=== PATIENT | male | born 1975 | race Caucasian/White ===

== ENCOUNTER 2021-12-27 09:40 | Outpatient (CLI) | payer OTHER, SELFPAY ==
[2021-12-27 19:37] LABS: Alanine Aminotransferase 56 U/L (6-50); Albumin Level 4.5 g/dL (3.5-5.1); Alkaline Phosphatase 62 U/L (38-126); Anion Gap 18 mmol/L (8-16); Aspartate Amino Transferase 46 U/L (17-59); Bilirubin,Total 0.5 mg/dL (0.2-1.3); Blood Urea Nitrogen 24 mg/dL (9-20); Calcium 9.1 mg/dL (8.4-10.2); Carbon Dioxide 23 mmol/L (22-30); Chloride 101 mmol/L (98-107); Cholesterol 159 mg/dL (0-200); Estimated Glomerular Filt Rate 55; Glucose 128 mg/dL (65-110); HDL Direct 47 mg/dL; Potassium 4.4 mmol/L (3.4-5.0); Sodium 142 mmol/L (137-145); Triglycerides 152 mg/dL (<150)
[2021-12-27 19:48] LABS: LDL Cholesterol Direct 69 mg/dL
[2021-12-27 19:53] LABS: Basophils Percent Auto 0.3 % (0.2-1.2); Eosinophils Percent Auto 0.5 % (0-4.4); Hematocrit 45.4 % (42.0-52.0); Hemoglobin 14.4 g/dL (14.0-18.0); Immature Granulocyte Absolute 0.02 K/mm3 (0.00-0.031); Immature Granulocyte Percent A 0.3 % (0-0.5); Lymphocytes Absolute Auto 1.49 K/mm3 (0.9-3.2); Lymphocytes Percent Auto 24.1 % (18.3-44.2); Mean Corpuscular HGB Conc 31.7 g/dl (32-36); Mean Corpuscular Hemoglobin 27.9 pg (26-34); Mean Corpuscular Volume 87.8 fl (80-100); Mean Platelet Volume 11.4 fl (7.4-10.4); Monocytes Absolute Auto 0.4 K/mm3 (0.1-0.6); Monocytes Percent Auto 6.9 % (2.6-8.5); Neutrophils Absolute Auto 4.2 K/mm3 (1.3-6.7); Neutrophils Percent Auto 67.9 % (45.5-73.1); Platelet Count Result 214 k/mm3 (150-375); Red Blood Count 5.17 M/mm3 (4.6-6.20); Red Cell Distribution Width 13.7 % (11.5-14.5); White Blood Count 6.2 K/mm3 (4.5-10.0)
== END 2021-12-27 09:41 | disposition home or self-care (01) ==
LOC: ANHGOSHLAB 09:41
PROVIDERS: PCP Internal Medicine; Visit Provider Clinical Nurse Specialist
DX: Z13.228 Encounter for screening for other metabolic disorders (principal); Z13.220 Encounter for screening for lipoid disorders
CPT/HCPCS: 36415; 80053; 80061; 85025

== ENCOUNTER 2022-04-10 08:28 | Outpatient (CLI) | payer OTHER, SELFPAY ==
[2022-04-10 19:05] LABS: Alanine Aminotransferase 47 U/L (6-50); Albumin Level 4.1 g/dL (3.5-5.1); Alkaline Phosphatase 64 U/L (38-126); Anion Gap 6 mmol/L (8-16); Aspartate Amino Transferase 65 U/L (17-59); Bilirubin,Total 0.7 mg/dL (0.2-1.3); Blood Urea Nitrogen 29 mg/dL (9-20); Calcium 8.7 mg/dL (8.4-10.2); Carbon Dioxide 30 mmol/L (22-30); Chloride 103 mmol/L (98-107); Estimated Glomerular Filt Rate > 60; Glucose 95 mg/dL (65-110); Sodium 139 mmol/L (137-145)
[2022-04-10 19:32] LABS: Prostate Specific Antigen 1.5 ng/mL (< OR = 4.0)
[2022-04-10 19:49] LABS: Hemoglobin A1C 5.4 % (<5.7)
[2022-04-14 04:14] LABS: LH 4.5 mIU/mL (1.5-9.3)
[2022-04-21 10:52] LABS: Testosterone Total 460 ng/dL (250-1100)
== END 2022-04-10 08:29 | disposition home or self-care (01) ==
LOC: ANHGOSHLAB 08:30
PROVIDERS: PCP Internal Medicine; Visit Provider Internal Medicine
DX: Z51.81 Encounter for therapeutic drug level monitoring (principal); R94.4 Abnormal results of kidney function studies; E29.1 Testicular hypofunction; Z13.228 Encounter for screening for other metabolic disorders; R73.9 Hyperglycemia, unspecified
CPT/HCPCS: 36415; 80053; 83002; 83036; 84153; 84402; 84403

== ENCOUNTER 2022-05-28 08:21 | Outpatient (CLI) | payer OTHER, SELFPAY ==
[2022-05-28 19:06] LABS: Iron 110 ug/dL (49-181)
[2022-05-28 19:15] LABS: Percent Iron Saturation 28 % (20-50)
[2022-05-28 19:30] LABS: Alanine Aminotransferase 62 U/L (6-50); Albumin Level 4.7 g/dL (3.5-5.1); Alkaline Phosphatase 64 U/L (38-126); Aspartate Amino Transferase 51 U/L (17-59); Bilirubin,Total 0.6 mg/dL (0.2-1.3)
[2022-05-28 20:04] LABS: Hepatitis B Surface Antigen Negative (Negative)
[2022-05-28 20:21] LABS: Hepatitis C Virus Antibody Negative (Negative)
[2022-06-02 10:00] LABS: Gliadin AB, IgG 1.7 U/mL (<15.0); TTG IGA AB <1.0 U/mL (<15.0)
== END 2022-05-28 08:22 | disposition home or self-care (01) ==
LOC: ANHGOSHLAB 08:24
PROVIDERS: PCP Internal Medicine; Visit Provider Nurse Practitioner
DX: K64.9 Unspecified hemorrhoids (principal); R14.0 Abdominal distension (gaseous); R79.89 Other specified abnormal findings of blood chemistry; Z12.11 Encounter for screening for malignant neoplasm of colon; E29.1 Testicular hypofunction
CPT/HCPCS: 36415; 80076; 82728; 83540; 83550; 86255; 86364; 86803; 87340

== ENCOUNTER 2022-12-06 08:46 | Outpatient (CLI) | payer OTHER, SELFPAY ==
[2022-12-06 18:33] LABS: Basophils Percent Auto 0.5 % (0.2-1.2); Eosinophils Absolute Auto 0.1 K/mm3 (0-0.3); Eosinophils Percent Auto 1.5 % (0-4.4); Hematocrit 47.7 % (42.0-52.0); Hemoglobin 15.2 g/dL (14.0-18.0); Immature Granulocyte Absolute 0.02 K/mm3 (0.00-0.031); Immature Granulocyte Percent A 0.3 % (0-0.5); Lymphocytes Absolute Auto 1.39 K/mm3 (0.9-3.2); Lymphocytes Percent Auto 22.6 % (18.3-44.2); Mean Corpuscular HGB Conc 31.9 g/dl (32-36); Mean Corpuscular Hemoglobin 28.1 pg (26-34); Mean Corpuscular Volume 88.3 fl (80-100); Mean Platelet Volume 11.8 fl (7.4-10.4); Monocytes Absolute Auto 0.5 K/mm3 (0.1-0.6); Monocytes Percent Auto 8.6 % (2.6-8.5); Neutrophils Absolute Auto 4.1 K/mm3 (1.3-6.7); Neutrophils Percent Auto 66.5 % (45.5-73.1); Platelet Count Result 189 k/mm3 (150-375); Red Cell Distribution Width 13.4 % (11.5-14.5); White Blood Count 6.1 K/mm3 (4.5-10.0)
[2022-12-06 18:45] LABS: Alanine Aminotransferase 57 U/L (6-50); Albumin Level 4.2 g/dL (3.5-5.1); Alkaline Phosphatase 58 U/L (38-126); Anion Gap 7 mmol/L (8-16); Aspartate Amino Transferase 69 U/L (17-59); Bilirubin,Total 0.8 mg/dL (0.2-1.3); Blood Urea Nitrogen 24 mg/dL (9-20); Calcium 8.7 mg/dL (8.4-10.2); Carbon Dioxide 29 mmol/L (22-30); Chloride 100 mmol/L (98-107); Estimated Glomerular Filt Rate > 60; Glucose 110 mg/dL (65-110); Potassium 4.7 mmol/L (3.4-5.0); Sodium 136 mmol/L (137-145)
[2022-12-06 19:48] LABS: Hemoglobin A1C 5.4 % (<5.7)
[2022-12-11 11:00] LABS: Testosterone Free 173.4 pg/mL (35.0-155.0); Testosterone Total 867 ng/dL (250-1100)
== END 2022-12-06 08:47 | disposition home or self-care (01) ==
LOC: ANHGOSHLAB 08:48
PROVIDERS: Clinical Nurse Specialist; PCP Internal Medicine; Visit Provider Nurse Practitioner
DX: E29.1 Testicular hypofunction (principal); R73.9 Hyperglycemia, unspecified
CPT/HCPCS: 36415; 80053; 83036; 84402; 84403; 85025

== ENCOUNTER → 2022-12-24 07:45 | Outpatient (CLI) | payer OTHER, SELFPAY ==
--- NOTE | ~2022-12-24 | US_ITS ---
US abdomen limited INDICATION: Increased liver function tests PROCEDURE: Realtime right upper abdominal ultrasound. COMPARISON: No prior studies for comparison. FINDINGS: The pancreas is normal without focal mass or pancreatic ductal dilation. Liver echotexture is normal without focal mass or intrahepatic biliary dilatation. There is normal directional flow i n the portal vein. There are gallbladder polyps, largest measuring 4 mm. No gallstones, gallbladder wall thickening or p ericholecystic fluid. Common bile duct measures 4 mm. No sonographic Laura's sign. IMPRESSION: 1: Gallbladder polyps. Reviewed, dictated and finalized at location B. IMPRESSION: 1: Gallbladder polyps.
== END ==
PROVIDERS: PCP Internal Medicine; Visit Provider Nurse Practitioner
DX: R74.8 Abnormal levels of other serum enzymes (principal); K82.4 Cholesterolosis of gallbladder
CPT/HCPCS: 76705

== ENCOUNTER 2022-12-24 07:48 | Outpatient (CLI) | payer OTHER, SELFPAY ==
--- NOTE | ~2022-12-24 | MR_ITS ---
MRI of the right knee Clinical history: Pain Technique: Coronal proton density and proton density-weighted images, sagittal proton-density and T2 fat-sat images, and axial proton-density fat-saturated images were acquired. Findings: Anterior and posterior cruciate ligaments are intact. Lateral collateral ligament complex a nd popliteus tendon are intact. There is possible tearing of the deep meniscal femoral portion of the MCL. There is complex tearing of the posterior horn the medial meniscus, with both vertical and horizontal tear components. No lateral meniscal tear seen. There is extensive marrow edema at the medial femoral condyle region. There is a 1.3 x 0.4 cm grade 4 chondral lesion at the central aspect of the medial femoral condyle. Very early developing osteochon dral lesion may be present. Articular cartilage in the patellofemoral and lateral compartments is wel l preserved. Extensor mechanism is intact. Small joint effusion present. Small probable partially ruptured Pacheco's cyst present. Impression: Complex tearing of the posterior horn the medial meniscus, both vertical and horizontal tear componen ts. Extensive marrow edema of the medial femoral condyle region. This could be reactive due to underlying 1.3 x 0.4 cm grade 4 chondral lesion of the central aspect of the medial femoral condyle. Possible v shereen early developing osteochondral lesion in this location. Bone contusion from direct impaction inju ry would be an alternative consideration, versus other stress response/reactive marrow edema. Questionable partial tearing of the deep meniscofemoral portion of the MCL. Small joint effusion with small, partially ruptured Pacheco's cyst. Reviewed, dictated and finalized at location M. Impression: Complex tearing of the posterior horn the medial meniscus, both vertical and ho rizontal tear components. Extensive marrow edema of the medial femoral condyle region. This could be reac tive due to underlying 1.3 x 0.4 cm grade 4 chondral lesion of the central aspe ct of the medial femoral condyle. Possible very early developing osteochondral lesion in this location. Bone contusion from direct impaction injury would be a n alternative consideration, versus other stress response/reactive marrow edema . Questionable partial tearing of the deep meniscofemoral portion of the MCL. Small joint effusion with small, partially ruptured Pacheco's cyst.
== END 2022-12-24 07:49 ==
LOC: GOSHIMG 07:48
PROVIDERS: PCP Internal Medicine; Visit Provider Family Medicine Sports Medicine
DX: M25.561 Pain in right knee (principal); M23.91 Unspecified internal derangement of right knee
CPT/HCPCS: 73721

== ENCOUNTER 2023-03-22 09:01 | Outpatient (CLI) | payer OTHER, SELFPAY ==
[2023-03-22 12:08] LABS: Hematocrit 49.4 % (42.0-52.0); Mean Corpuscular HGB Conc 32.4 g/dl (32-36); Mean Corpuscular Hemoglobin 27.7 pg (26-34); Mean Corpuscular Volume 85.6 fl (80-100); Mean Platelet Volume 11.6 fl (7.4-10.4); Platelet Count Result 177 k/mm3 (150-375); Red Blood Count 5.77 M/mm3 (4.6-6.20); Red Cell Distribution Width 13.2 % (11.5-14.5); White Blood Count 4.5 K/mm3 (4.5-10.0)
[2023-03-22 12:16] LABS: Prothrombin Time 13.3 Seconds (11.1-14.7)
[2023-03-22 12:17] LABS: Alanine Aminotransferase 57 U/L (6-50); Albumin Level 4.4 g/dL (3.5-5.1); Alkaline Phosphatase 94 U/L (38-126); Anion Gap 8 mmol/L (8-16); Aspartate Amino Transferase 81 U/L (17-59); Bilirubin,Total 1.3 mg/dL (0.2-1.3); Blood Urea Nitrogen 28 mg/dL (9-20); Calcium 8.8 mg/dL (8.4-10.2); Carbon Dioxide 27 mmol/L (22-30); Chloride 103 mmol/L (98-107); Cholesterol 196 mg/dL (0-200); Estimated Glomerular Filt Rate > 60; Glucose 104 mg/dL (65-110); HDL Direct 44 mg/dL; Potassium 4.3 mmol/L (3.4-5.0); Sodium 138 mmol/L (137-145); Triglycerides 262 mg/dL (<150)
[2023-03-22 12:25] LABS: LDL Cholesterol Direct 86 mg/dL
[2023-03-22 12:26] LABS: Iron 150 ug/dL (49-181)
[2023-03-22 12:39] LABS: Percent Iron Saturation 41 % (20-50)
[2023-03-22 13:04] LABS: Hepatitis B Surface Antigen Negative (Negative)
[2023-03-22 13:10] LABS: HAV RESULT Negative (Negative); Hepatitis B Core IgM Result Negative (Negative)
[2023-03-22 13:21] LABS: Hepatitis C Virus Antibody Negative (Negative)
[2023-03-25 20:23] LABS: GGT 24 U/L (3-95)
[2023-03-26 05:27] LABS: LKM 1 Antibody <=20.0 U (<=20.0)
[2023-03-26 09:52] LABS: Actin Antibody (IgG) <20 U (<20)
[2023-03-26 13:59] LABS: Anti Nuclear Antibody Pattern Nuclear, Speckled; Anti Nuclear Antibody Titer 1:40 (Negative)
[2023-03-26 19:45] LABS: Ceruloplasmin 26 mg/dL (18-36)
[2023-03-27 12:06] LABS: Testosterone Free 35.4 pg/mL (35.0-155.0); Testosterone Total 239 ng/dL (250-1100)
[2023-03-27 21:34] LABS: Mitochondrial (M2) Ab (IgG) 33.7 U (<=20.0)
[2023-03-29 15:42] LABS: ALT 43 U/L (9-46); Alpha Fetoprotein Tumor Marker 2.4 ng/mL (<6.1); Alpha-2-Macroglobulin 142 mg/dL (106-279); Apolipoprotein A1 164 mg/dL (94-176); Fibrosis Score 0.08; Fibrosis Stage F0; GGT 25 U/L (3-95); Haptoglobin 74 mg/dL (43-212); Necroinflammat Act Grade A0-A1; Total Bilirubin 0.3 mg/dL (0.2-1.2)
== END 2023-03-22 09:02 | disposition home or self-care (01) ==
PROVIDERS: PCP Internal Medicine; Visit Provider Nurse Practitioner
DX: R79.89 Other specified abnormal findings of blood chemistry (principal); K74.60 Unspecified cirrhosis of liver; E29.1 Testicular hypofunction; Z79.890 Hormone replacement therapy; Z12.5 Encounter for screening for malignant neoplasm of prostate
CPT/HCPCS: 36415; 80053; 80061; 80074; 81596; 82104; 82105; 82390; 82728; 82977; 83520; 83540; 83550; 84153; 84402; 84403; 84443; 85027; 85610; 86038; 86039; 86364; 86376; G0103

== ENCOUNTER 2023-06-10 08:15 | Outpatient (CLI) | payer OTHER, SELFPAY ==
[2023-06-10 21:23] LABS: Alanine Aminotransferase 56 U/L (6-50); Albumin Level 4.5 g/dL (3.5-5.1); Alkaline Phosphatase 63 U/L (38-126); Aspartate Amino Transferase 47 U/L (17-59); Bilirubin,Total 0.6 mg/dL (0.2-1.3)
[2023-06-12 19:20] LABS: Alpha-1-Antitrypsin, QN 144 mg/dL (83-199)
== END 2023-06-10 08:16 | disposition home or self-care (01) ==
LOC: ANHGOSHLAB 08:16
PROVIDERS: PCP Internal Medicine; Visit Provider Internal Medicine
DX: R94.5 Abnormal results of liver function studies (principal); R06.00 Dyspnea, unspecified
CPT/HCPCS: 36415; 80076; 82103

== ENCOUNTER 2023-06-29 07:14 | Outpatient (CLI) | payer OTHER, SELFPAY ==
--- NOTE | ~2023-06-29 | US_ITS ---
US abdomen limited DATE: 06/29/2023 07:46 INDICATION: Gallbladder polyp follow-up TECHNIQUE: Real-time imaging of the liver, pancreas, gallbladder COMPARISON: 12/24/2022 Limited abdominal ultrasound examination FINDINGS: No hepatic or pancreatic space-occupying mass lesion is evident. Normal hepatopedal portal venous flow direction. Common bile duct measures 3.9 mm, normal. No gallstones or gallbladder wall thickening are noted. At least one small gallbladder polyp may be p resent. No further follow-up is required. Negative sonographic Laura's sign. IMPRESSION: Possible small gallbladder polyp; further follow-up is not required Reviewed, dictated and finalized at Location A. Reviewed, dictated and finalized at location A.
== END 2023-06-29 07:15 ==
LOC: MICIMG 07:15
PROVIDERS: PCP Nurse Practitioner; Visit Provider Nurse Practitioner
DX: K82.4 Cholesterolosis of gallbladder (principal)
CPT/HCPCS: 76705

== ENCOUNTER 2024-03-30 08:34 | Outpatient (CLI) | payer OTHER, SELFPAY ==
--- OUTSIDE RECORDS SUMMARY | 2024-03-30 08:51 | XMS_ITS | Continuity of Care Document ---
Author Organization [facility] Address [address] [place] [address] Phone Care Team Providers Care Hospice Clinical Marketer Name Role Phone Mikhail Balderrama MD Unavailable Unavailable Allergies, Adverse Reactions, Alerts Substance Reaction Status Criticality No Known Allergies Active No Inform ation Procedures Procedure Date OFFICE/OUTPATIENT VISIT EST OFFICE/OUTPATIENT VISIT EST OFFICE/OUTPATIENT VISIT [facility] Advance Directives Directive Yes / No Effective Date File Name No Information Encounters Encounter Description Practice Location Reason(s) For Visit Diagnoses Date Provider Providers Copied on Encounter OFFICE/OUTPA TIENT VISIT EST [facility], [address], [place], [address], [place] [phone] [facility] Other tear of medial meniscus of right knee as current injury, subsequent encounter 9 Balderrama Mikhail. [address], [place], [place], [id number] , [place]. tel: [phone] OFFICE/OUTPA TIENT VISIT EST [facility], [address], [place], [address], [place] [phone] [facility] Primary osteoarthritis of right kneeOther tear of medial meniscus of right knee as current injury, initial encounter 9 Balderrama Mikhail. [address], [place], [place], [id number] , [place]. tel: [phone] OFFICE/OUTPA TIENT VISIT [facility] Surgery, [address], [place], [address], [place] [phone] [facility] Acute pain of right knee Sep-2 0-201 9 [place]. [address], [place], [place], [id number] , [place]. tel: [phone] Family History Family Member Type Diagnosis Age At Onset Mother Problem (finding) Alive and well Son Problem (finding) Alive and well Daughter Problem (finding) Alive and well Father Problem (finding) Alive and well Sister Problem (finding) Alive and well Brother Problem (finding) Alive and well Payers Payer name Insurance type Covered democrat ID Authoriza tion(s) Blue Access Choice PPO E2 OT [id number] Social History Type Description Quantity Date Captured Comments Alcohol Use Details Unknown Caffeine Use Details Unknown Tobacco Use Status Smoking Status No Information Sex Male Chief Complaint And Reason For Visit No Information Reason For Referral Reason For Referral No Information Plan Of Treatment Date Type Action Status Goal Tobacco cessation counseling completed Referral Ordered: MRI ANY JT LXTR C-MATRL RT knee Appointment date/timeframe: 11/25/2018 ordered Referral Ordered: RADEX KNE COMPL 4/MORE VIEWS RT ordered History Of Present Illness Encounter Date Complaint History Of Prese nt Illness No Information Functional Status Date Functional Assessmen t No Information Instructions Date Instruction Additional Infor mation No Information Assessments Type Assessment Date assessment Other tear of medial meniscus of right knee as current injury, subsequent encounter Patient Care Teams Name Effective Dates (start - stop) Status Members No Information
--- OUTSIDE RECORDS SUMMARY | 2024-03-30 08:51 | XMS_ITS | Referral Summary ---
Author Organization [facility] Address [address] [place] [address] Care Team Providers Care Workforce Development Specialist Name Role Phone Miscellaneous, Not In File Unavailable Unava ilDominguez Galvan DO Primary Care Provider +1- [phone] Encounters Date Type Department Care Team Description 03/11/2024 11:00 AM CORRESPONDENT Office Visit [facility] Surgery [address] [place] [address] Medical Office Building [address] [place] [address] Mya Cherry PA Anal warts 03/10/2024 Telephone [facility] Surgery [facility] Floor 5 [place] [address] Brit Jacob B.ATyler CRS Clinic Prep from Last 3 Months Allergies No known active allergies Medications cyclobenzaprine (FLEXERIL) 10 mg tablet Take 1 tablet (10 mg total) by mouth 3 (three) times a day as needed for muscle spasms 30 tablet 4 Active imiquimod (ALDARA) 5 % cream Apply topically 3 (three) times a week Wash hands prior to and following application. 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 Immunizations Name Administration Dates Next Due Influenza, Unspecified 03/04/2016 Tdap 11/08/2009 Social History Tobacco Use Types Packs/Day Years Used Date Smoking Tobacco: Never Smokeless Tobacco: Never Tobacco Cessation:Counseling Given: Not Answered Sex and Gender Information Value Date Recorded Sex Assigned at Not on file Legal Sex Male 6:18 PM CORRESPONDENT Gender Identity Male 01/14/2023 11:18 AM CORRESPONDENT Sexual Orientation Not on file Last Filed Vital Signs Vital Sign Reading Time Taken Comments Blood Pressure 166/84 03/11/2024 10:38 AM CORRESPONDENT Pulse 89 03/11/2024 10:38 AM CORRESPONDENT Temperature 36.3 ??C (97.3 ??F) 03/11/2024 10:[address] Respiratory Rate 22 04/01/2023 8:51 AM CORRESPONDENT Oxygen Saturation 99% 03/11/2024 10:38 AM CORRESPONDENT Inhaled Oxygen Concentration - - Weight 92.2 kg (203 lb 3.2 oz) 03/11/2024 10:38 AM CORRESPONDENT Height 185.4 cm (6' 1 ) 03/11/2024 10:38 AM CORRESPONDENT Body Mass Index 26.81 03/11/2024 10:38 AM CORRESPONDENT Plan of Treatment Upcoming Encounters Date Type Department Care Team (Latest Contact Info) Description 04/24/2024 12:15 PM CORRESPONDENT Hospital Encounter [facility] Operating Room [address] [place] [address] Rica Torres MD [address] [facility] [phone] [place] [address] 04/24/2024 12:15 PM CORRESPONDENT - 04/24/2024 1:15 [address] [facility] Operating Room [address] [place] [address] Rica Torres MD [address] [facility] [phone] [place] [address] EXAM UNDER ANESTHESIA - RECTUM Scheduled Procedures Name Priority Associated Diagnoses Date/Ti me EXAM UNDER ANESTHESIA - RECTUM Anal condyloma 04/24/2024 12:15 PM CORRESPONDENT EXCISION/FULGURATION CONDYLO MA - ANAL Anal condyloma 04/24/2024 12:15 PM CORRESPONDENT Insurance [facility] PLUS [facility] PL[facility] Care Teams Workforce Development Specialist Relationship Specialty Start Date End Date Dominguez Caldwell DO [facility] [place] [id number] PCP - General Internal Medicine 01/07/24 Miscellaneous, Not In File Referring Physician General Surgery 01/02/24
--- OUTSIDE RECORDS SUMMARY | 2024-03-30 08:51 | XMS_ITS | Clinical Summary ---
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 Floor 5 [place] [address] Brit Jacob CynA. CRS Clinic Prep from Last 3 Months Immunizations Name Administration Dates Next Due Influenza, Unspecified 03/04/2016 Tdap 11/08/2009 Surgical History Surgery Date Site/Laterality Comments COLONOSCOPY 01/03/2024 - 02/01/2024 Medical History Medical History Date Comments No pertinent past medical history Family History Medical History Relation Name Comments No Known Problems Father No Known Problems Mother Relation Name Status Comments Father Mother Social History Tobacco Use Types Packs/Day Years Used Date Smoking Tobacco: Never Smokeless Tobacco: Never Tobacco Cessation:Counseling Given: Not Answered Sex and Gender Information Value Date Recorded Sex Assigned at Not on file Legal Sex Male 6:18 PM TRAFFIC CHECKER Gender Identity Male 01/14/2023 11:18 AM TRAFFIC CHECKER Sexual Orientation Not on file Obstetrics History Last Filed Vital Signs Vital Sign Reading Time Taken Comments Blood Pressure 166/84 03/11/2024 10:38 AM TRAFFIC CHECKER Pulse 89 03/11/2024 10:38 AM TRAFFIC CHECKER Temperature 36.3 ??C (97.3 ??F) 03/11/2024 10:[address] Respiratory Rate 22 04/01/2023 8:51 AM TRAFFIC CHECKER Oxygen Saturation 99% 03/11/2024 10:38 AM TRAFFIC CHECKER Inhaled Oxygen Concentration - - Weight 92.2 kg (203 lb 3.2 oz) 03/11/2024 10:38 AM TRAFFIC CHECKER Height 185.4 cm (6' 1 ) 03/11/2024 10:38 AM TRAFFIC CHECKER Body Mass Index 26.81 03/11/2024 10:38 AM TRAFFIC CHECKER Plan of Treatment Upcoming Encounters Date Type Department Care Team (Latest Contact Info) Description 04/24/2024 12:15 PM TRAFFIC CHECKER Hospital Encounter [facility] Operating Room [address] [place] [address] Rica Torres MD [address] [phone] [place] [address] 04/24/2024 12:15 PM TRAFFIC CHECKER - 04/24/2024 1:15 PM TRAFFIC CHECKER Surgery [facility] Operating Room [address] [place] [address] Rica Torres MD [address] [phone] [place] [address] EXAM UNDER ANESTHESIA - RECTUM Scheduled Procedures Name Priority Associated Diagnoses Date/Ti me EXAM UNDER ANESTHESIA - RECTUM Anal condyloma 04/24/2024 12:15 PM TRAFFIC CHECKER EXCISION/FULGURATION CONDYLO MA - ANAL Anal condyloma 04/24/2024 12:15 PM TRAFFIC CHECKER Health Maintenance Due Date Last Done Comments Colon Cancer Screening-Colonoscopy 1977 Depression Screening 1977 Hepatitis C Screening 1977 Hepatitis B Screening 1995 Regular Well Visit/Exam 18-64 1995 DTaP/Tdap/Td Vaccine (2 - Td or Tdap) 11/09/2019 11/08/2009 Covid-19 Vaccine (3 - 2023-2 5 season) 2023 10/26/2020, 10/05/2020 Influenza Vaccine (#1) 2023 03/04/2016 HPV Vaccines Aged Out No longer eligi ble based on patient's age to complete this topic Pneumococcal vaccine <65 Aged Out No longer eligible based on patient's age to complete this topic Insurance [facility] Care Teams Tower Erector Relationship Specialty Start Date End Date Dominguez Caldwell DO [facility] [address] [address] PCP - General Internal Medicine 01/07/24 Miscellaneous, Not In File Referring Physician General Surgery 01/02/24
[2024-03-30 16:30] LABS: Alanine Aminotransferase 75 U/L (6-50); Albumin Level 4.3 g/dL (3.5-5.1); Alkaline Phosphatase 68 U/L (38-126); Anion Gap 6 mmol/L (4-12); Aspartate Amino Transferase 64 U/L (17-59); Bilirubin,Total 0.7 mg/dL (0.2-1.3); Blood Urea Nitrogen 30 mg/dL (9-20); Calcium 8.9 mg/dL (8.4-10.2); Carbon Dioxide 29 mmol/L (22-30); Chloride 102 mmol/L (98-107); Cholesterol 200 mg/dL (0-200); Estimated Glomerular Filt Rate > 60; Glucose 78 mg/dL (65-110); HDL Direct 44 mg/dL; Sodium 137 mmol/L (137-145); Triglycerides 187 mg/dL (<150)
[2024-03-30 16:37] LABS: Basophils Percent Auto 0.6 % (0.2-1.2); Eosinophils Percent Auto 0.6 % (0-4.4); Hematocrit 44.4 % (42.0-52.0); Hemoglobin 14.5 g/dL (14.0-18.0); Immature Granulocyte Absolute 0.02 K/mm3 (0.00-0.031); Immature Granulocyte Percent A 0.4 % (0-0.5); Lymphocytes Absolute Auto 1.41 K/mm3 (0.9-3.2); Lymphocytes Percent Auto 28.1 % (18.3-44.2); Mean Corpuscular HGB Conc 32.7 g/dl (32-36); Mean Corpuscular Hemoglobin 28.3 pg (26-34); Mean Corpuscular Volume 86.7 fl (80-100); Mean Platelet Volume 11.3 fl (7.4-10.4); Monocytes Absolute Auto 0.4 K/mm3 (0.1-0.6); Monocytes Percent Auto 8.6 % (2.6-8.5); Neutrophils Absolute Auto 3.1 K/mm3 (1.3-6.7); Neutrophils Percent Auto 61.7 % (45.5-73.1); Platelet Count Result 172 k/mm3 (150-375); Red Blood Count 5.12 M/mm3 (4.6-6.20); Red Cell Distribution Width 13.4 % (11.5-14.5)
[2024-03-30 16:41] LABS: LDL Cholesterol Direct 99 mg/dL
[2024-03-30 17:10] LABS: Hemoglobin A1C 5.7 % (<5.7)
== END 2024-03-30 08:35 | disposition home or self-care (01) ==
PROVIDERS: PCP Internal Medicine; Visit Provider Nurse Practitioner
DX: Z13.220 Encounter for screening for lipoid disorders (principal); Z13.228 Encounter for screening for other metabolic disorders; Z13.1 Encounter for screening for diabetes mellitus
CPT/HCPCS: 36415; 80053; 80061; 83036; 85025

== ENCOUNTER 2024-09-24 15:18 | Outpatient (CLI) | payer OTHER, SELFPAY ==
--- OUTSIDE RECORDS SUMMARY | 2024-09-24 15:22 | XMS_ITS | Continuity of Care Document ---
Author Organization [facility] Address [address] [place] [address] Phone Care Team Providers Care Manager Assembly Name Role Phone Mikhail Balderrama MD Unavailable Unavailable Allergies, Adverse Reactions, Alerts Substance Reaction Status Criticality No Known Allergies Active No Inform ation Procedures Procedure Date OFFICE/OUTPATIENT VISIT EST OFFICE/OUTPATIENT VISIT EST OFFICE/OUTPATIENT VISIT [facility] Advance Directives Directive Yes / No Effective Date File Name No Information Encounters Encounter Description Practice Location Reason(s) For Visit Diagnoses Date Provider Providers Copied on Encounter OFFICE/OUTPA TIENT VISIT EST [facility], [address], [place], [address], [place] [phone] [facility] Other tear of medial meniscus of right knee as current injury, subsequent encounter 9 Balderrama Mikhail. [address], [place], [place], [id number] , [place]. tel: [phone] OFFICE/OUTPA TIENT VISIT EST [facility], [address], [place], [address], [place] [phone] [facility] Primary osteoarthritis of right kneeOther tear of medial meniscus of right knee as current injury, initial encounter 9 Balderrama Mikhail. [address], [place], [place], [id number] , [place]. tel: [phone] OFFICE/OUTPA TIENT VISIT [facility] Surgery, [address], [place], [address], [place] [phone] [facility] Acute pain of right knee Sep-2 0-201 9 [place]. [address], [place], [place], [id number] , [place]. tel: [phone] Family History Family Member Type Diagnosis Age At Onset Mother Problem (finding) Alive and well Son Problem (finding) Alive and well Daughter Problem (finding) Alive and well Father Problem (finding) Alive and well Sister Problem (finding) Alive and well Brother Problem (finding) Alive and well Payers Payer name Insurance type Covered constitution party ID Authoriza tion(s) Blue Access Choice PPO E2 OT [id number] Social History Type Description Quantity Date Captured [...]
--- OUTSIDE RECORDS SUMMARY | 2024-09-24 15:22 | XMS_ITS | Clinical Summary ---
Author Organization [facility] Address [address] [place] [address] Care Team Providers Care Orchid Grower Name Role Phone Miscellaneous, Not In File Unavailable Unava ilDominguez Galvan DO Primary Care Provider +1- [phone] Allergies No known active allergies Medications cyclobenzaprine (FLEXERIL) 10 mg tablet Take 1 tablet (10 mg total) by mouth 3 (three) times a day as needed for muscle spasms 30 tablet 4 Active imiquimod (ALDARA) 5 % cream Apply topically 3 (three) times a week Wash hands prior to and following application. 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 Encounters Date Type Department Care Team Description 07/31/2024 Hospital Encounter [facility] Operating Room [address] [place] [address] Rica Torres MD from Last 3 Months Immunizations Immunization Administration Dates Next Due Influenza, Unspecified 03/04/2016 [...] on file Legal Sex Male 6:18 PM PATIENT NAVIGATOR Gender Identity Male 01/14/2023 11:18 AM PATIENT NAVIGATOR Sexual Orientation Not on file Obstetrics History Last Filed Vital Signs Vital Sign Reading Time Taken Comments Blood Pressure 166/84 03/11/2024 10:38 AM PATIENT NAVIGATOR Pulse 89 03/11/2024 10:38 AM PATIENT NAVIGATOR Temperature 36.3 C (97.3 F) 03/11/2024 10:38 AM PATIENT NAVIGATOR Respiratory Rate 22 04/01/2023 8:51 AM PATIENT NAVIGATOR Oxygen Saturation 99% 03/11/2024 10:38 AM PATIENT NAVIGATOR Inhaled Oxygen Concentration - - Weight 92.2 kg (203 lb 3.2 oz) 03/11/2024 10:38 AM PATIENT NAVIGATOR Height 185.4 cm (6' 1) 03/11/2024 10:38 AM PATIENT NAVIGATOR Body Mass Index 26.81 03/11/2024 10:38 AM PATIENT NAVIGATOR Plan of Treatment Health Maintenance Due Date Last Done Comments Colon Cancer Screening-Colonoscopy 1977 Depression Screening 1977 Hepatitis C Screening 1977 Hepatitis B Screening 1995 Regular Well Visit/Exam 18-64 1995 DTaP/Tdap/Td Vaccine (2 - Td or Tdap) 11/09/2019 11/08/2009 Covid-19 Vaccine (3 - 2023-2 5 season) 2023 10/26/2020, 10/05/2020 Influenza Vaccine (Season Ended) 2024 03/04/2016 Pneumococcal vaccine <65 Aged Out No longer eligible based on patient's age to complete this topic Insurance [facility] PL[facility] PL[facility] Care Teams Orchid Grower Relationship Specialty Start Date End Date Dominguez Caldwell DO PCP - General Internal Medicine 01/07/24 Miscellaneous, Not In File Referring Physician General Surgery 01/02/24
--- OUTSIDE RECORDS SUMMARY | 2024-09-24 15:22 | XMS_ITS | Referral Summary ---
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 Immunizations Immunization Administration Dates Next Due Influenza, Unspecified 03/04/2016 Tdap 11/08/2009 Social History Tobacco Use Types Packs/Day Years Used Date Smoking Tobacco: Never Smokeless Tobacco: Never Tobacco Cessation:Counseling Given: Not Answered Sex and Gender Information Value Date Recorded Sex Assigned at Not on file Legal Sex Male 6:18 PM ELECTRICAL AND INSTRUMENT ENGINEER Gender Identity Male 01/14/2023 11:18 AM ELECTRICAL AND INSTRUMENT ENGINEER Sexual Orientation Not on file Last Filed Vital Signs Vital Sign Reading Time Taken Comments Blood Pressure 166/84 03/11/2024 10:38 AM ELECTRICAL AND INSTRUMENT ENGINEER Pulse 89 03/11/2024 10:38 AM ELECTRICAL AND INSTRUMENT ENGINEER Temperature 36.3 C (97.3 F) 03/11/2024 10:38 AM ELECTRICAL AND INSTRUMENT ENGINEER Respiratory Rate 22 04/01/2023 8:51 AM ELECTRICAL AND INSTRUMENT ENGINEER Oxygen Saturation 99% 03/11/2024 10:38 AM ELECTRICAL AND INSTRUMENT ENGINEER Inhaled Oxygen Concentration - - Weight 92.2 kg (203 lb 3.2 oz) 03/11/2024 10:38 AM ELECTRICAL AND INSTRUMENT ENGINEER Height 185.4 cm (6' 1) 03/11/2024 10:38 AM ELECTRICAL AND INSTRUMENT ENGINEER Body Mass Index 26.81 03/11/2024 10:38 AM ELECTRICAL AND INSTRUMENT ENGINEER Plan of Treatment Not on file Insurance [facility] CHOICE PLUS Care Teams Lead Project Engineer Relationship Specialty Start Date End Date Dominguez Caldwell DO PCP - General Internal Medicine 01/07/24 Miscellaneous, Not In File Referring Physician General Surgery 01/02/24
--- OUTSIDE RECORDS SUMMARY | 2024-09-24 15:22 | XMS_ITS | Encounter Summary ---
Author Organization [facility] Healthcare Address [address] [place] [address] Care Team Providers Care Third Grade Teacher Name Role Phone Miscellaneous, Not In File Unavailable Unava Dominguez Whitley DO Primary Care Provider [phone] Reason for Visit * Auth/Cert (Routine) Specialty Diagnoses / Procedures Referred By Henna t Referred To Contact Diagnoses Anal condyloma Anal condyloma [A63.0] Procedures SC ANRCT XM SURG REQ ANES GENERAL SPI/EDRL DX SC DSTRJ LESION ANUS SIMPLE SURG EXCISION SC DSTRJ LESION ANUS SMPL ELTRDSICCATION EXAM UNDER ANESTHESIA - RECTUM EXCISION/FULGURATION CONDYLOMA - ANAL Referral ID Status Reason Start Date Expiration Date Visits Re quested Visits Authorized [id number] 1 1 Encounter Details Date Type Department Care Team (Late st Contact Info) Description 07/31/2024 Hospital Encounter [facility] Operating Room [id number] [facility] [place] [address] Rica Torres MD [address] [facility] [phone] [place] [address] Social History Tobacco Use Types Packs/Day Years Used Date Smoking Tobacco: Never Smokeless Tobacco: Never Sex and Gender Information Value Date Recorded Sex Assigned at Not on file Legal Sex Male 6:18 PM [employer] TECH[employer]ICIAN Gender Identity Male 01/14/2023 11:18 AM [employer]INDOWS DEPL[employer] TECHNICIAN Sexual Orientation Not on file documented as of this encounter Plan of Treatment Not on file documented as of this encounter Visit Diagnoses Diagnosis Anal condyloma- Primary Condyloma acuminatum documented in this encounter Admitting Diagnoses Diagnosis Anal condyloma Condyloma acuminatum documented in this encounter Care Teams Third Grade Teacher Relationship Specialty Start Date End Date Dominguez Caldwell DO PCP - General Internal Medicine 01/07/24 Miscellaneous, Not In File Referring Physician General Surgery 01/02/24 documented as of this encounter
[2024-09-24 18:57] LABS: Alanine Aminotransferase 68 U/L (6-50); Albumin Level 4.2 g/dL (3.5-5.1); Alkaline Phosphatase 67 U/L (38-126); Aspartate Amino Transferase 64 U/L (17-59); Bilirubin,Total 0.3 mg/dL (0.2-1.3); Total Protein 7.2 g/dL (6.3-8.2)
== END 2024-09-24 15:19 | disposition home or self-care (01) ==
LOC: ANHGOSHLAB 15:20
PROVIDERS: PCP Internal Medicine; Visit Provider Nurse Practitioner
DX: R79.89 Other specified abnormal findings of blood chemistry (principal); R76.8 Other specified abnormal immunological findings in serum
CPT/HCPCS: 36415; 80076; 86381